=== PATIENT | female | born 1995 | race Caucasian/White ===

== ENCOUNTER 2016-09-14 22:32 | Emergency (ER) | payer OTHER ==
[~2016-09-14] VITALS: Ht 142.2 cm; Wt 63.6 kg
[~2016-09-14 22:32] MED LIST: Ascorbic Acid PO; DOCU-41 PO; FERR-74 PO; IBUP-1827 PO; IBUP400T22 PO; ONDA4TAB9 PO; OXYC1TAB24 PO
[2016-09-14 22:43] VITALS: BP 126/86; PULSE 85; RESP 16; O2SAT 96
[2016-09-14 23:49] LABS: APPEARANCE,URINE CLOUDY (CLEAR,HAZY); COLOR,URINE RED (YELLOW); PH,URINE 6.5 (5.0-8.0)
[2016-09-14 23:50] LABS: OCCULT BLOOD,URINE LARGE (NEGATIVE); UROBILINOGEN,URINE NORMAL (NORMAL)
--- NOTE | 2016-09-15 00:06 | ED.REPORT ---
HPI-Abd Pain F Under 38 Date of Service September 15, 2016 ED Provider: Marin Dickinson DO Patient is a healthy 21 year old female, , who comes in to [facility] Emergency Department complaining of suprapubic pain and dysuria x 3 days. Patient has a prior history of UTI and responded well to Macrobid in the past. Last menstrual period on August 02, 2016. She states she has irregular menstrual cycle. She is not currently sexually active. She denies h/o STIs. She denies flank pain, chills, fever, nausea, vomiting. She states she has blood on the toilet paper after urination, but no gross hematuria. Nursing Notes Stated Complaint: UTI, BLEEDING Chief Complaint: Female Abdominal Pain Nursing Notes Reviewed: Yes Allergies: Coded Allergies: No Known Allergies (Unverified Allergy, Unknown, 03/04/15) Scheduled ([Ascorbic Acid]) 500 MG TABLET 500 MG PO DAILYWM Docusate Sodium (Colace) 100 Mg Capsule 100 MG PO BID Ferrous Sulfate (Feosol) 325 Mg Tablet 325 MG PO BIDWM Nitrofurantoin Macrocrystal (Nitrofurantoin) 25 Mg Capsule 100 MG PO BID Scheduled PRN Ibuprofen (Ibuprofen) 400 Mg Tablet 400 MG PO QID PRN PRN For Pain Ibuprofen (Ibuprofen) 600 Mg Tablet 600 MG PO QID PRN PRN For Pain Ondansetron ODT (Zofran ODT) 4 Mg Tablet 4 MG PO Q4H PRN PRN For Nausea oxyCODONE-Acetaminophen 5-325 mg (oxyCODONE-Acetaminophen 5-325 mg) 1 Each Tablet 1-2 TAB PO Q4H PRN PRN For Pain General Time Seen by MD: 23:40 Chief Complaint Dysuria Hx Obtained From: Patient Arrived By: Walk-in Onset Occurred: 3 days ago Context of Onset: With menses Symptom Duration: Constant Progression since Onset: Gradually worsening Location: : Suprapubic Quality: Same as prior, Pressure Radiation: : Does not radiate Severity: Current: No pain currently Severity: Maximum: Mild Recent Healthcare: No recent doctor visit Similar Sx Previous: Yes Past Medical History Past Medical History Normally healthy Past Surgical History Reports: Smoking History Never Smoker Social History Alcohol Use: Denies alcohol use Drug Use: Denies drug use Other Social History: Lives with parents, Lives with children Ambulatory Status Independent Review of Systems Constitutional: Denies: Chills, Fatigue, Fever Respiratory: Denies: Dyspnea on exertion, Shortness of breath, Wheezing Cardiovascular: Denies: Chest pain, Edema, Palpitations, Syncope GI: Denies: Abdominal pain, Anorexia, Belching, Constipation, Diarrhea, Hematemesis, Hematochezia, Melena, Nausea, Vomiting Female: Reports: Dysuria, Hematuria, Urinary frequency, Urinary urgency, Vaginal discharge, Denies: Incontinence, Nocturia, Pelvic pain, Musculoskeletal: Denies: Back pain, Extremity pain, Joint pain Physical Exam Initial Vital Signs Vital Signs (First) Date Time Temp Pulse Resp B/P Pulse Ox O2 Delivery O2 Flow Rate FiO2 09/14/16 22:43 36.6 85 16 126/86 96 Room Air Initial VS: Reviewed, Vital signs normal General/Constitutional: Awake, Alert, No acute distress, Well appearing, Well developed, Well hydrated, Well nourished, Cooperative Respiratory / Chest: Atraumatic, Breath sounds = bilat, No respiratory distress Cardiovascular: Heart rate NL, Regular rhythm, No murmurs Abdomen: Atraumatic, Soft, No guarding, No rebound Tenderness/Guarding/Rebound: Positive: Tender suprapubic Back: No CVA tenderness Head / Eyes: Atraumatic, Normocephalic, PERRL ENT: Atraumatic, Mucous membranes moist Skin: No rash, Warm, Dry, Intact Neurologic: Oriented X3, Speech NL Psychiatric: Affect NL, Mood NL Interpretation & Diagnostics Lab Results Interpretation Result Diagram: 09/14/16 2359 09/14/16 2359 Test 09/14/16 23:24 09/14/16 23:26 09/14/16 23:59 Hold Urine Received (Received) Urine Color Red (YELLOW) Urine Appearance Cloudy (CLEAR,HAZY) Urine pH 6.5 (5.0-8.0) Urine Specific [place] 1.005 (1.003-1.035) Urine Protein 100mg/dL (NEG,TRACE) Urine Glucose (UA) Negativemg/dL (NEGATIVE) Urine Ketones Negativemg/dL (NEGATIVE) Urine Occult Blood Large (NEGATIVE) Urine Nitrite Negative (NEGATIVE) Urine Bilirubin Negative (NEGATIVE) Urine Urobilinogen Normalmg/dL (NORMAL) Urine Leukocyte Esterase Large (NEGATIVE) Urine RBC Packed/hpf (0-2) Urine WBC >50/hpf (0-5) Urine Epithelial Cells Few/hpf (NONE-MOD) Urine Crystals None seen (NONE SEEN) Urine Bacteria Moderate/hpf (NONE-FEW) Urine Hyaline Casts None/lpf (NONE) Urine Granular Casts None seen (NONE SEEN) Urine Waxy Casts None seen (NONE SEEN) Urine Red Blood Cell Casts None seen (NONE SEEN) Urine White Blood Cell Casts None seen (NONE SEEN) Urine Mucus None seen (None Seen) Urine Trichomonas None seen (NONE SEEN) Urine Yeast None (NONE SEEN) Urinalysis Comment Urine Culture Reflexed Indicated White Blood Count 12.6th/mm3 (3.8-10.1) Red Blood Count 4.78mil/mm3 (3.90-5.20) Hemoglobin 13.9g/dL (12.0-15.6) Hematocrit 40.1% (35.0-46.0) Mean Corpuscular Volume 83.9fL (81-100) Mean Corpuscular Hemoglobin 29.1pg (27.0-35.0) Mean Corpuscular Hemoglobin Concent 34.7% (32.0-37.0) Red Cell Distribution Width 12.5% (12.3-15.4) Platelet Count 274bil/L (150-400) Neutrophils (%) (Auto) 72.0% (40-74) Lymphocytes (%) (Auto) 19.8% (14-46) Monocytes (%) (Auto) 5.4% (4-12) Eosinophils (%) (Auto) 2.2% (0-5) Basophils (%) (Auto) 0.4% (0-3) Sodium Level 139mEq/L (134-144) Potassium Level 4.0mEq/L (3.5-5.2) Chloride Level 102mEq/L (97-108) Carbon Dioxide Level 26mmol/L (18-29) Blood Urea Nitrogen 10mg/dL (6-20) Creatinine 0.72mg/dL (0.57-1.00) Estimat Glomerular Filtration Rate 144mL/min (>59) Glucose Level 107mg/dL (60-99) Calcium Level 9.3mg/dL (8.5-10.1) Total Bilirubin 0.3mg/dL (0.0-1.2) Aspartate Amino Transf (AST/SGOT) 25U/L (0-50) Alanine Aminotransferase (ALT/SGPT) 43U/L (0-32) Alkaline Phosphatase 84U/L (25-150) Total Protein 7.4g/dL (6.4-8.4) Albumin 4.5g/dL (3.4-5.0) Point of Care Testing: Preg test neg - urine General Lab Results Interp 1: CBC - leukocytosis (12.6) Urinalysis Interpretation Positive blood, Positive leukocyte est, Positive WBC's, Positive bacteria Re-Eval/Medical Decision Med Decision/Clinical Course In summary, this is a 21 year old female with prior history of UTI who comes in c/o dysuria x 3 days, mild leukocytosis and positive UA. UA sent for chlamydia/ gonorrhea. No signs of pyelonephritis. Patient will be discharged home with prescription for Nitrofurantoin for UTI and instructions to follow up with PCP. Diagnosis and lab results discussed with the patient. Answers encouraged and answered. Return to emergency room for worsening symptoms discussed. Patient agreed. Counseled Regarding: Diagnosis, Lab results, Need for follow-up, When/why to return to ED Discharge & Departure Departure Notes UA sent for chlamydia and gonorrhea. Patient will follow up. Primary Impression: UTI (urinary tract infection) Urinary tract infection type: acute cystitis Hematuria presence: with hematuria Qualified Code: N30.01 - Acute cystitis with hematuria Disposition: Home Discharge Condition Condition: Stable Additional Instructions: Thank you for seeking care at emergency department today. You have a urinary tract infection. You are given a prescription for Nitrofurantoin, please take 100 mg twice a day by mouth for 5 days. Please follow up with your PCP in 1-2 weeks. You can take these steps to reduce your risk for urinary tract infection: drink plenty of liquids, especially water. Drinking water helps dilute urine and ensures that you will urinate more frequently - allowing bacteria to be flushed from your urinary tract before the infection begin. Please return to emergency room for worsening symptoms: fever, chills, nausea, vomiting, severe abdominal/back pain. Thank you for letting us partake in your care today. Referrals: Godfrey Contreras MD (PCP) EDSupervising Provider for APC: Marin Dickinson DO Attending Statment I personally took a history performed an examination. I concur with the assessment and plan as outlined above. copies to: Godfrey Contreras MD, Oksana S DO September 15, 2016 00:06 Marin Dickinson DO September 15, 2016 18:20
[2016-09-15 00:13] LABS: BASOPHILS % (AUTO) 0.4 % (0-3); EOSINOPHILS % (AUTO) 2.2 % (0-5); MONOCYTES % (AUTO) 5.4 % (4-12); Mean Corpuscular Hemoglobin 29.1 pg (27.0-35.0); Mean Corpuscular Volume 83.9 fL (81-100); Platelet Count 274 bil/L (150-400)
[2016-09-15] MEDS ORDERED: NITR25CA2 PO (01:32)
== END 2016-09-15 01:52 | disposition home or self-care (01) ==
LOC: EDBD 22:32 → SED 22:32
DX: N30.01 Acute cystitis with hematuria (principal); B96.20 Unspecified Escherichia coli [E. coli] as the cause of diseases classified elsewhere; Z87.440 Personal history of urinary (tract) infections